=== PATIENT | female | born 1955 | race Caucasian/White ===

== ENCOUNTER 2017-03-12 12:09 | Day surgery (SDC) | payer OTHER ==
[2017-03-09 13:42] LABS: BASOPHILS 0.7 %; BASOPHILS ABSOLUTE 0.03 10/3/uL (0.0-0.16); EOSINOPHILS 1.8 %; EOSINOPHILS ABSOLUTE 0.08 10/3/uL (0.0-0.53); IMMATURE GRANULOCYTES 0.2 %; IMMATURE GRANULOCYTES ABSOLUTE 0.01 10/3/uL (0.0-0.11); LYMPHOCYTES 24.1 %; LYMPHOCYTES ABSOLUTE 1.09 10/3/uL (0.67-4.30); MEAN CORPUS HGB CONC 32.8 g/dL (32.0-36.0); MEAN CORPUSCULAR HEMOGLOB 27.1 pg (26.0-34.0); MEAN CORPUSCULAR VOLUME 82.6 fL (80-100); MEAN PLATELET VOLUME 11.1 fL (9.2-13.0); NEUTROPHILS 62.2 %; NEUTROPHILS ABSOLUTE 2.82 10/3/uL (2.02-8.40); RBC DISTRIBUTION WIDTH 14.1 % (12.0-16.0); RED CELL COUNT 5.06 10/6/uL (4.0-5.6); WHITE BLOOD CELLS 4.5 10/3/uL (4.5-10.5)
[2017-03-09 13:44] LABS: HEMATOCRIT 41.8 % (36.0-48.0); HEMOGLOBIN 13.7 g/dL (12.0-16.0); MANUAL DIFF NO %; PLATELET COUNT 143 10/3/uL (150-400)
[2017-03-09 13:57] LABS: A/G RATIO 1.6 (0.7-1.9); ALBUMIN 4.5 G/DL (3.5-5.0); CALCIUM, SERUM 9.2 MG/DL (8.5-10.4); CHLORIDE, SERUM 110 MMOL/L (96-112); CO2 (CARBON DIOXIDE) 29 MMOL/L (24-34); CREATININE 0.77 MG/DL (0.55-1.02); GFR AFRICAN AMERICAN 97 ML/MIN (>=60); GFR NON AFRICAN AMERICAN 84 ML/MIN (>=60); GLOBULIN 2.8 G/DL (2.5-4.1); GLUCOSE, SERUM 106 MG/DL (60-99); POTASSIUM, SERUM 4.5 MMOL/L (3.5-5.3); SGOT(AST) 15 U/L (5-40); SGPT(ALT) 18 U/L (5-65); SODIUM, SERUM 146 MMOL/L (135-148); TOTAL BILIRUBIN 0.4 MG/DL (0-1.2); TOTAL PROTEIN 7.3 G/DL (6.0-8.5)
[2017-03-09 13:58] LABS: ALKALINE PHOSPHATASE 77 U/L (45-117); BUN (BLOOD UREA NITROGEN) 18 MG/DL (6-23)
--- NOTE | ~2017-03-12 | OP ---
Record Of Operation [facility] [address] [place]. [address] NAME: BOSTON AGUIRRE : 59 STATUS : [facility]#: [id number] AGE: 62 ADM/REG DATE : 03/12/17 MR#: [id number] REPORT SERV DATE: 03/13/17 DICTATED BY: LIBRADO RAYMOND JR. DATE: 03/12/17 REPORT STATUS : Draft TRANSCRIBED BY: CAT DATE: 03/12/17 DATE OF PROCEDURE: 03/12/2017 SURGEON: Librado Raymond M.D. [employer]ER: Anjum Jim. PROCEDURE: Laparoscopic cholecystectomy. PREOPERATIVE DIAGNOSIS: Cholecystitis. POSTOPERATIVE DIAGNOSIS: Cholecystitis. ANESTHESIA: General. INDICATIONS: This patient has history of right upper quadrant pain. She had HIDA scan which showed normal visualization of gallbladder and thought to be consistent with biliary dyskinesia and chronic cholecystitis. She also had previous abdominal surgery for resection of GIST from which she has no evidence of recurrent disease. Laparoscopic cholecystectomy was indicated. FINDINGS: On laparoscopic examination of abdomen, there are adhesions from the previous surgery. These were taken down in the upper midline to facilitate exposure. The gallbladder was removed successfully. There is chronic inflammation. No other significant abnormalities were encountered. DESCRIPTION OF PROCEDURE: With adequate general anesthesia, the patient was placed in supine position. The abdomen was prepped and draped sterilely. 0.5% Marcaine was used for local infiltration of all trocar sites. The portion of previous midline incision was utilized in the umbilicus, that was opened down through the subcutaneous tissues. The fascia and perineum were opened. A balloon-tipped trocar was introduced. The abdomen was insufflated with CO2. The laparoscope was entered as above, then a placed in the epigastric with 5 mm scope placed through the right upper quadrant. Adhesions were taken down the midline utilizing the LigaSure device to control bleeding, then the tumor was placed through the midline trocar to visualize the gallbladder, it was grasped and retracted in a cephalad manner. The cystic duct and artery were identified, doubly clipped, and divided. The gallbladder was then removed from its bed with electrocautery, it was placed in an Endopouch and extracted with aspirated prior to dissection because it was full of mouth. It was submitted to Pathology. Bleeding within the bed was controlled with electrocautery. The wound was irrigated thoroughly. There was no evidence of any bleeding or bile leak. All trocars were removed under direct vision. The umbilical and epigastric sites were closed at the fascial layer with [id number] 0 PDS . All wounds were then closed with dermal Monocryl. Sterile dressings were applied. ESTIMATED BLOOD LOSS: 30 mL. Record Of Operation [facility] [address] [place]. [address] NAME: BOSTON AGUIRRE : 59 STATUS : [facility] PAT#: [id number] AGE: 62 ADM/REG DATE : 03/12/17 MR#: [id number] REPORT SERV DATE: 03/13/17 DICTATED BY: LIBRADO RAYMOND JR. DATE: 03/12/17 REPORT STATUS : Draft TRANSCRIBED BY: CAT DATE: 03/12/17 SJ/CAT Librado Raymond Jr., M.D. / [id number] CC: Rodrick Juarez Jr., M.D.
[~2017-03-12 12:09] MED LIST: ACET500CAP PO; BEN25 PO; CARDCD120 PO; CIP5 PO; CYMBALTA60 PO; FERROUS SULF325 M1 PO; FLAG500TAB PO; LEVAQUIN750 MG PO; LORT7 PO; MULTIPLE VIT PO; NOR50 PO; NORCO1 TA1 PO; PRILOSEC40 MG PO; V5 PO; Z-PAK PO; ZOCOR10 PO; ZOFRAN8 PO
== END 2017-03-12 19:30 | disposition home or self-care (01) ==
LOC: SDC 12:09
PROVIDERS: Specialist
PROC: 0FT44ZZ Resection of Gallbladder, Percutaneous Endoscopic Approach (ICD-10-PCS; principal; 2017-03-12 14:00)
DX: K80.10 Calculus of gallbladder with chronic cholecystitis without obstruction (principal); I10 Essential (primary) hypertension; J44.9 Chronic obstructive pulmonary disease, unspecified; K21.9 Gastro-esophageal reflux disease without esophagitis; E78.00 Pure hypercholesterolemia, unspecified; D64.9 Anemia, unspecified; Z98.51 Tubal ligation status; Z90.711 Acquired absence of uterus with remaining cervical stump; Z87.891 Personal history of nicotine dependence; Z98.890 Other specified postprocedural states
CPT/HCPCS: 36415; 71020; 80053; 82150; 83690; 85025; 88304; 93005; J0690; J1170; J2250; J2405; J2550; J3010

== ENCOUNTER 2017-03-18 10:39 | Inpatient (IN) | payer OTHER ==
--- NOTE | ~2017-03-18 | DS ---
Discharge Summary [facility] [address] [place]. [address] NAME: BOSTON AGUIRRE : 59 STATUS : DIS IN PAT#: [id number] AGE: 62 ADM/REG DATE : 03/18/17 MR#: [id number] REPORT SERV DATE: 04/03/17 DICTATED BY: LIBRADO RAYMOND JR. DATE: 04/02/17 REPORT STATUS : Draft TRANSCRIBED BY: CAT DATE: 04/02/17 Data Collection from hospitalization DISCHARGE DIAGNOSES: ( ) ( ) ( ) CONSULTATIONS: None. PROCEDURES PERFORMED: CT scan of the abdomen and pelvis with contrast on 03/18/2017. MEDICATIONS: Cardizem CD 120 mg daily, Benadryl 25 mg at bedtime as needed, Cymbalta 60 mg daily, Prilosec 20 mg twice a day, Zofran 4 mg every six hours as needed for nausea, and Zocor 10 mg at bedtime. CONDITION AT DISCHARGE: Stable. DISPOSITION: The patient was discharged home on a regular diet with activities as instructed. She would follow up with me two weeks following discharge. HOSPITAL COURSE: This is a 62-year-old female who has had a recent laparoscopic cholecystectomy for cholecystitis. She initially did well, but then developed nausea and emesis. This improved, but then worsened, and she has had significant bilious vomitus over the past 12 hours prior to admission. She was seen in the office where she had a dehydrated appearance and it was felt that observation and additional evaluation was indicated. Labs were unremarkable for hypokalemia, and she had a CT scan which demonstrated evidence of bowel obstruction with no evidence of any abscess, fluid collection, or free air. She was admitted to the hospital at this time for further evaluation and treatment. Upon admission, IV fluids were started. We would replenish electrolytes and recheck labs and x-rays in 24 hours. She would be held n.p.o. for now. She was felt to have possible bowel obstruction versus ileus versus gastroenteritis. The following day, she said she was feeling better. She had some emesis after taking a potassium still. She was passing some flatus. She remained n.p.o. On 03/20/2017, she had some increased pain during the night. Her abdomen was less distended. X-rays revealed slow resolution of the small bowel obstruction/ileus. IV fluids were continued. She began to have some liquid stool. Her incisions looked okay. On 03/22/2017, she was tolerating full liquids without nausea or vomiting. She was passing formed/semi-solid bowel movements. Her diet was advanced. The next day, she tolerated her regular diet. Her abdomen was soft. Discharge planning was performed on 03/24/2017. She has had an episode of emesis the previous evening. She was tolerating oral intake at this time. Discharge instructions were given. Due to her improved and stable condition, she was discharged home with the above-stated instructions. Information collected by: Katherine Echavarria I submit the above information as my discharge summary. Discharge Summary [place] [address] [facility] [place]. [address] NAME: BOSTON AGUIRRE : 59 STATUS : DIS IN PAT#: [id number] AGE: 62 ADM/REG DATE : 03/18/17 MR#: [id number] REPORT SERV DATE: 04/03/17 DICTATED BY: LIBRADO RAYMOND JR. DATE: 04/02/17 REPORT STATUS : Draft TRANSCRIBED BY: CAT DATE: 04/02/17 GUICHO/CAT Librado Raymond Jr., M.D. / [id number] CC: Rodrick Juarez Jr., M.D.
--- NOTE | ~2017-03-18 | HP ---
History And Physical [address] [place]. [address] NAME: BOSTON AGUIRRE : 59 STATUS : ADM Octavio PAT#: [id number] AGE: 62 ADM/REG DATE : 03/18/17 MR#: [id number] REPORT SERV DATE: 03/18/17 DICTATED BY: LIBRADO LUCAS JR. DATE: 03/18/17 REPORT STATUS : Draft TRANSCRIBED BY: MODSylwia DATE: 03/18/17 DATE OF ADMISSION: 03/18/2017 CHIEF COMPLAINT: Nausea, vomiting, and dehydration. HISTORY OF PRESENT ILLNESS: This is a 62-year-old female. She has had a recent laparoscopic cholecystectomy for cholecystitis. She initially did well, but then developed nausea and emesis. This improved but then has worsened and she has had significant bilious vomit over the past 12 hours. She was seen in the office where she had dehydrated appearance and it was felt that observation and additional evaluation was indicated. Laboratories are unremarkable for hypokalemia and she had a CT scan which demonstrated evidence of bowel obstruction with no evidence of any abscess, fluid collection, or free air. She is being held for IV fluids, initial aspiration. PAST MEDICAL HISTORY: Remarkable for history of a GIST tumor and also a squamous cell carcinoma, hypercholesterolemia, and hypertension. ALLERGIES: LISTED. HOME MEDICATIONS: Listed. SOCIAL HISTORY: Alcohol and tobacco, none. FAMILY HISTORY: Noncontributory. REVIEW OF SYSTEMS: GENERAL: No fever or chills. HEENT: Negative. PULMONARY: Negative. CARDIAC: Negative. : Low urine. MUSCULOSKELETAL: Negative. HEMATOLOGY: Negative. IMMUNOLOGIC: Negative. PSYCHIATRIC: Negative. PHYSICAL EXAMINATION: GENERAL: Exam shows a female who is in mild distress. HEENT: The head and neck exam shows pupils are equal, round, and reactive. No icteric changes. Mucous membranes are dry. NECK: The neck is supple. LUNGS: Clear bilaterally. CARDIOVASCULAR: Exam shows normal S1 and S2 without murmur. ABDOMEN: The abdomen is slightly distended. Hypoactive bowel sounds are present. Incisions are healing, it is soft, and there is mild tenderness. EXTREMITIES: Show no clubbing, cyanosis, or edema. NEUROLOGIC: She is alert and oriented. History And Physical [address] [place]. [address] NAME: BOSTON AGUIRRE : 59 STATUS : ADM Octavio PAT#: [id number] AGE: 62 ADM/REG DATE : 03/18/17 MR#: [id number] REPORT SERV DATE: 03/18/17 DICTATED BY: LIBRADO LUCAS JR. DATE: 03/18/17 REPORT STATUS : Draft TRANSCRIBED BY: CAT DATE: 03/18/17 LABORATORIES: Reviewed and also CT images. IMPRESSION: Postoperative nausea, vomiting, dehydration, possible bowel obstruction versus ileus versus gastroenteritis. PLAN: We will keep for observation, give IV fluids. Replenish electrolytes and recheck labs and x-rays in 24 hours. We will keep n.p.o. for now. SJ/CAT Librado Lucas Jr., M.D. / [id number] CC: Librado Lucas Jr., M.D.
[2017-03-18 11:22] LABS: BASOPHILS 0.3 %; BASOPHILS ABSOLUTE 0.02 10/3/uL (0.0-0.16); EOSINOPHILS 1.7 %; HEMATOCRIT 39.4 % (36.0-48.0); HEMOGLOBIN 13.4 g/dL (12.0-16.0); IMMATURE GRANULOCYTES 0.2 %; IMMATURE GRANULOCYTES ABSOLUTE 0.01 10/3/uL (0.0-0.11); LYMPHOCYTES 14.5 %; LYMPHOCYTES ABSOLUTE 0.84 10/3/uL (0.67-4.30); MEAN CORPUSCULAR HEMOGLOB 27.3 pg (26.0-34.0); MEAN CORPUSCULAR VOLUME 80.4 fL (80-100); MEAN PLATELET VOLUME 10.4 fL (9.2-13.0); MONOCYTES 15.7 %; MONOCYTES ABSOLUTE 0.91 10/3/uL (0.21-1.20); NEUTROPHILS 67.6 %; NEUTROPHILS ABSOLUTE 3.93 10/3/uL (2.02-8.40); PLATELET COUNT 159 10/3/uL (150-400); RBC DISTRIBUTION WIDTH 13.9 % (12.0-16.0); WHITE BLOOD CELLS 5.8 10/3/uL (4.5-10.5)
[2017-03-18 11:23] LABS: MANUAL DIFF NO %
[2017-03-18 11:43] LABS: A/G RATIO 1.2 (0.7-1.9); ALBUMIN 3.8 G/DL (3.5-5.0); ALKALINE PHOSPHATASE 68 U/L (45-117); BUN (BLOOD UREA NITROGEN) 11 MG/DL (6-23); CALCIUM, SERUM 9.2 MG/DL (8.5-10.4); CHLORIDE, SERUM 102 MMOL/L (96-112); CO2 (CARBON DIOXIDE) 29 MMOL/L (24-34); CREATININE 0.83 MG/DL (0.55-1.02); GFR AFRICAN AMERICAN 89 ML/MIN (>=60); GFR NON AFRICAN AMERICAN 77 ML/MIN (>=60); GLOBULIN 3.3 G/DL (2.5-4.1); GLUCOSE, SERUM 104 MG/DL (60-99); PHOSPHORUS, SERUM 1.9 MG/DL (2.5-4.5); SGOT(AST) 12 U/L (5-40); SGPT(ALT) 26 U/L (5-65); SODIUM, SERUM 140 MMOL/L (135-148); TOTAL BILIRUBIN 0.7 MG/DL (0-1.2); TOTAL PROTEIN 7.1 G/DL (6.0-8.5)
[2017-03-18 15:36] LABS: ASCORBIC ACID (UR NOT ORDER) NEG (NEG); BILIRUBIN, URINE NEGATIVE (NEG); KETONE, URINE NEGATIVE (NEG); LEUKOCYTE ESTERASE(NOT OR TRACE (NEG); WBC (NOT ORDERED) (RFLEX) 2 (0-5)
[2017-03-19 03:36] LABS: BASOPHILS 0.2 %; BASOPHILS ABSOLUTE 0.01 10/3/uL (0.0-0.16); EOSINOPHILS 2.8 %; EOSINOPHILS ABSOLUTE 0.14 10/3/uL (0.0-0.53); HEMATOCRIT 38.4 % (36.0-48.0); HEMOGLOBIN 12.9 g/dL (12.0-16.0); IMMATURE GRANULOCYTES 0.2 %; IMMATURE GRANULOCYTES ABSOLUTE 0.01 10/3/uL (0.0-0.11); LYMPHOCYTES 17.1 %; LYMPHOCYTES ABSOLUTE 0.86 10/3/uL (0.67-4.30); MANUAL DIFF NO %; MEAN CORPUS HGB CONC 33.6 g/dL (32.0-36.0); MEAN CORPUSCULAR HEMOGLOB 27.6 pg (26.0-34.0); MEAN CORPUSCULAR VOLUME 82.1 fL (80-100); MEAN PLATELET VOLUME 10.6 fL (9.2-13.0); MONOCYTES 14.3 %; MONOCYTES ABSOLUTE 0.72 10/3/uL (0.21-1.20); NEUTROPHILS 65.4 %; NEUTROPHILS ABSOLUTE 3.28 10/3/uL (2.02-8.40); PLATELET COUNT 138 10/3/uL (150-400); RED CELL COUNT 4.68 10/6/uL (4.0-5.6)
[2017-03-19 03:53] LABS: A/G RATIO 1.3 (0.7-1.9); ALBUMIN 3.3 G/DL (3.5-5.0); ALKALINE PHOSPHATASE 59 U/L (45-117); CALCIUM, SERUM 8.4 MG/DL (8.5-10.4); CHLORIDE, SERUM 109 MMOL/L (96-112); CO2 (CARBON DIOXIDE) 27 MMOL/L (24-34); GFR AFRICAN AMERICAN 93 ML/MIN (>=60); GFR NON AFRICAN AMERICAN 80 ML/MIN (>=60); SGOT(AST) 9 U/L (5-40); SGPT(ALT) 22 U/L (5-65); SODIUM, SERUM 144 MMOL/L (135-148); TOTAL BILIRUBIN 0.4 MG/DL (0-1.2); TOTAL PROTEIN 5.9 G/DL (6.0-8.5)
[2017-03-19 04:03] LABS: BUN (BLOOD UREA NITROGEN) 5 MG/DL (6-23); GLOBULIN 2.6 G/DL (2.5-4.1); GLUCOSE, SERUM 159 MG/DL (60-99); POTASSIUM, SERUM 3.8 MMOL/L (3.5-5.3)
[2017-03-20 05:06] LABS: BASOPHILS 0.2 %; BASOPHILS ABSOLUTE 0.01 10/3/uL (0.0-0.16); EOSINOPHILS 1.4 %; EOSINOPHILS ABSOLUTE 0.07 10/3/uL (0.0-0.53); HEMATOCRIT 39.4 % (36.0-48.0); HEMOGLOBIN 13.4 g/dL (12.0-16.0); IMMATURE GRANULOCYTES 0.2 %; IMMATURE GRANULOCYTES ABSOLUTE 0.01 10/3/uL (0.0-0.11); LYMPHOCYTES 8.6 %; LYMPHOCYTES ABSOLUTE 0.43 10/3/uL (0.67-4.30); MEAN CORPUSCULAR HEMOGLOB 27.6 pg (26.0-34.0); MEAN CORPUSCULAR VOLUME 81.1 fL (80-100); MEAN PLATELET VOLUME 10.5 fL (9.2-13.0); NEUTROPHILS 77.6 %; NEUTROPHILS ABSOLUTE 3.89 10/3/uL (2.02-8.40); PLATELET COUNT 151 10/3/uL (150-400); RBC DISTRIBUTION WIDTH 13.5 % (12.0-16.0); RED CELL COUNT 4.86 10/6/uL (4.0-5.6)
[2017-03-20 05:19] LABS: MANUAL DIFF NO %
[2017-03-20 05:21] LABS: ALBUMIN 3.1 G/DL (3.5-5.0); ALKALINE PHOSPHATASE 67 U/L (45-117); BUN (BLOOD UREA NITROGEN) 3 MG/DL (6-23); CALCIUM, SERUM 8.6 MG/DL (8.5-10.4); CHLORIDE, SERUM 106 MMOL/L (96-112); CO2 (CARBON DIOXIDE) 25 MMOL/L (24-34); GFR AFRICAN AMERICAN 109 ML/MIN (>=60); GFR NON AFRICAN AMERICAN 94 ML/MIN (>=60); GLOBULIN 3.1 G/DL (2.5-4.1); GLUCOSE, SERUM 144 MG/DL (60-99); POTASSIUM, SERUM 3.9 MMOL/L (3.5-5.3); SGOT(AST) 11 U/L (5-40); SGPT(ALT) 17 U/L (5-65); SODIUM, SERUM 139 MMOL/L (135-148); TOTAL BILIRUBIN 0.5 MG/DL (0-1.2); TOTAL PROTEIN 6.2 G/DL (6.0-8.5)
[2017-03-21 04:38] LABS: BASOPHILS 0.3 %; BASOPHILS ABSOLUTE 0.01 10/3/uL (0.0-0.16); EOSINOPHILS ABSOLUTE 0.08 10/3/uL (0.0-0.53); HEMATOCRIT 39.6 % (36.0-48.0); HEMOGLOBIN 13.3 g/dL (12.0-16.0); LYMPHOCYTES 19.7 %; LYMPHOCYTES ABSOLUTE 0.77 10/3/uL (0.67-4.30); MEAN CORPUS HGB CONC 33.6 g/dL (32.0-36.0); MEAN CORPUSCULAR HEMOGLOB 27.4 pg (26.0-34.0); MEAN CORPUSCULAR VOLUME 81.6 fL (80-100); MEAN PLATELET VOLUME 9.9 fL (9.2-13.0); MONOCYTES 18.9 %; MONOCYTES ABSOLUTE 0.74 10/3/uL (0.21-1.20); NEUTROPHILS 59.1 %; NEUTROPHILS ABSOLUTE 2.31 10/3/uL (2.02-8.40); PLATELET COUNT 168 10/3/uL (150-400); RBC DISTRIBUTION WIDTH 13.6 % (12.0-16.0); RED CELL COUNT 4.85 10/6/uL (4.0-5.6); WHITE BLOOD CELLS 3.9 10/3/uL (4.5-10.5)
[2017-03-21 04:41] LABS: MANUAL DIFF NO %
[2017-03-21 04:52] LABS: BUN (BLOOD UREA NITROGEN) 3 MG/DL (6-23); CALCIUM, SERUM 8.9 MG/DL (8.5-10.4); CHLORIDE, SERUM 105 MMOL/L (96-112); CO2 (CARBON DIOXIDE) 31 MMOL/L (24-34); GFR AFRICAN AMERICAN 93 ML/MIN (>=60); GFR NON AFRICAN AMERICAN 80 ML/MIN (>=60); GLUCOSE, SERUM 126 MG/DL (60-99); POTASSIUM, SERUM 4.3 MMOL/L (3.5-5.3); SODIUM, SERUM 140 MMOL/L (135-148)
[2017-03-23] MEDS ORDERED: ZOFRAN4 PO (17:51)
== END 2017-03-24 11:41 | disposition home or self-care (01) | DRG 395 ==
LOC: CDU1 10:39 → 4SO 03-21 08:47
PROVIDERS: Specialist
DX: K91.3 Postprocedural intestinal obstruction (principal); I10 Essential (primary) hypertension; E86.0 Dehydration; Y83.6 Removal of other organ (partial) (total) as the cause of abnormal reaction of the patient, or of later complication, without mention of misadventure at the time of the procedure; Z90.49 Acquired absence of other specified parts of digestive tract; E78.00 Pure hypercholesterolemia, unspecified; Z85.09 Personal history of malignant neoplasm of other digestive organs; Z98.890 Other specified postprocedural states; Y92.009 Unspecified place in unspecified non-institutional (private) residence as the place of occurrence of the external cause
CPT/HCPCS: 74020; 74177; 80048; 80053; 81001; 82150; 82962; 83690; 83735; 84100; 85025; A9270-GY; C9113; J2405; Q9967

== ENCOUNTER 2017-04-01 11:14 | Inpatient (IN) | payer OTHER ==
--- NOTE | ~2017-04-01 | DS ---
Discharge Summary [facility] [address] [place]. [address] NAME: BOSTON AGUIRRE : 59 STATUS : DIS IN PAT#: [id number] AGE: 62 ADM/REG DATE : 04/01/17 MR#: [id number] REPORT SERV DATE: 04/14/17 DICTATED BY: LIBRADO RAYMOND JR. DATE: 04/13/17 REPORT STATUS : Draft TRANSCRIBED BY: CAT DATE: 04/13/17 Data Collection from hospitalization DISCHARGE DIAGNOSIS(ES): 1. Small bowel obstruction. 2. Hypercholesterolemia. 3. Hypertension. 4. Gastroesophageal reflux disease. CONSULTATIONS: None. PROCEDURES PERFORMED: 1. CT of the abdomen and pelvis with contrast, 04/01/2017. 2. Exploratory laparotomy, lysis of adhesions, 04/02/2017. PATHOLOGY: Omentum with embedded mesh excision, fat necrosis. MEDICATIONS: Cartia XT 120 mg at bedtime, Cymbalta 60 mg daily, Prilosec 40 mg twice daily, Zocor 10 mg at bedtime, Banophen 25 mg at bedtime as needed, Zofran 4 mg every 6 hours as needed for nausea, and Phenergan 25 mg every 6 hours as needed for nausea. CONDITION AT DISCHARGE: Upon discharge, she did appear to be doing well and had no complaints. DISPOSITION: She was discharged home to continue a GI soft low fat, low residue diet with activity as discussed. She was to follow up with me in the office on 04/17/2017. HOSPITAL COURSE: This 62-year-old female presented with recurrent abdominal pain, cramping, nausea, and emesis. She had recent admission for small bowel obstruction which appeared resolved. She did have a history of cholecystectomy and history of GIST resection, hernia repair, and also pelvic radiation. She was admitted for additional evaluation and treatment. Upon admission to the hospital, she had been placed on electrolyte protocol, Protonix 40 mg IV daily, morphine 1 to 2 mg IV every 4 hours as needed, Zofran 4 mg IV every 4 to 6 hours as needed. She did undergo the above CT of the abdomen and pelvis with contrast on the day of admission. She had been placed on an n.p.o. diet, and IV fluids were also begun. Secondary to the findings of the CT scan, surgery had been discussed with the patient, and she was agreeable to proceed. Following the day of admission, she was taken to the operating room where she did undergo the above exploratory laparotomy. She had tolerated this well and was transferred to the recovery room. On postop day #1, she was noted to be feeling much better. She had been placed on a clear liquid diet. She was continued on IV fluids. She had no nausea or vomiting noted. On postop day #2, she did continue to do well and had no nausea or vomiting. Her abdomen was slightly distended. On postop day #2, she tolerated a full liquid diet and was noted to be feeling much better. Her WBCs were at 2.9. Her diet was being slowly advanced. On 04/06/2017, she had tolerated diet advancement without difficulty. Due to her stable condition, she was then discharged with the above instructions. Information collected by: Jeronimo Tabares Discharge Summary [address] [address] NAME: BOSTON AGUIRRE : 59 STATUS : DIS IN PAT#: [id number] AGE: 62 ADM/REG DATE : 04/01/17 MR#: [id number] REPORT SERV DATE: 04/14/17 DICTATED BY: LIBRADO RAYMOND JR. DATE: 04/13/17 REPORT STATUS : Draft TRANSCRIBED BY: CAT DATE: 04/13/17 I submit the above information as my discharge summary. MELISSA/CAT Librado Raymond Jr., M.D. / [id number] CC: Rodrick Juarez Jr., M.D.
--- NOTE | ~2017-04-01 | HP ---
History And Physical [address] [place]. [address] NAME: BOSTON AGUIRRE : 59 STATUS : ADM Octavio PAT#: [id number] AGE: 62 ADM/REG DATE : 04/01/17 MR#: [id number] REPORT SERV DATE: 04/02/17 DICTATED BY: LIBRADO LUCAS JR. DATE: 04/02/17 REPORT STATUS : Draft TRANSCRIBED BY: CAT DATE: 04/02/17 DATE OF ADMISSION: 04/01/2017 CHIEF COMPLAINT: Abdominal pain. HISTORY OF PRESENT ILLNESS: This is a 62-year-old female. She presents with recurrent abdominal pain, cramping, nausea, and emesis. She had recent admission for small bowel obstruction, which appeared resolved. She did have a history of cholecystectomy and history of GIST resection, hernia repair, and also pelvic radiation. She is admitted for additional evaluation and treatment. PAST MEDICAL HISTORY: Remarkable for hypercholesterolemia and hypertension. ALLERGIES: NONE. SOCIAL HISTORY: Tobacco and alcohol, none. FAMILY HISTORY: Noncontributory. REVIEW OF SYSTEMS: GENERAL: No fever or chills. Positive weakness, fatigue. HEENT: Negative. PULMONARY: Negative. CARDIAC: Negative. ABDOMEN: As above. : No symptoms. MUSCULOSKELETAL: Negative. HEME: Negative. IMMUNE: Negative. PSYCH: Negative. PHYSICAL EXAMINATION: GENERAL: Shows a female, who is in moderate distress. VITAL SIGNS: Heart rate 85, blood pressure 141/79, temperature 97.9. HEENT: Pupils are equal, round, and reactive. No icteric changes. Mucous membranes are slightly dry. NECK: Supple. There is no mass or thyromegaly. LUNGS: Clear bilaterally. CARDIOVASCULAR: Normal S1 and S2 without murmur. ABDOMEN: Somewhat distended, but soft. There is some mild tenderness in the right side. There are no peritoneal signs. EXTREMITIES: No clubbing, cyanosis, or edema. NEUROLOGIC: She is alert and oriented. No focal findings. Appropriate affect. IMPRESSION: Small bowel obstruction. History And Physical [address] [place]. [address] NAME: BOSTON AGUIRRE : 59 STATUS : ADM Octavio PAT#: [id number] AGE: 62 ADM/REG DATE : 04/01/17 MR#: [id number] REPORT SERV DATE: 04/02/17 DICTATED BY: LIBRADO LUCAS JR. DATE: 04/02/17 REPORT STATUS : Draft TRANSCRIBED BY: CAT DATE: 04/02/17 PLAN: We will proceed with admission. Give IV fluids. Keep n.p.o. status. Check CT imaging and likely proceed with surgery in the next 24 hours. SJ/CAT Librado Lucas Jr., M.D. / [id number] CC: Rodrick Juarez Jr., M.D.
--- NOTE | ~2017-04-01 | OP ---
Record Of Operation [facility] [address] [place]. [address] NAME: BOSTON AGUIRRE : 59 STATUS : ADM Octavio PAT#: [id number] AGE: 62 ADM/REG DATE : 04/01/17 MR#: [id number] REPORT SERV DATE: 04/02/17 DICTATED BY: LIBRADO RAYMOND JR. DATE: 04/02/17 REPORT STATUS : Draft TRANSCRIBED BY: MODL DATE: 04/02/17 DATE OF PROCEDURE: 04/02/2017 SURGEON: Librado Raymond M.D. [employer] ADMINISTRATOR: Hansa Miguel. PROCEDURE: Exploratory laparotomy, lysis of adhesions. PREOPERATIVE DIAGNOSIS: Small bowel obstruction. POSTOPERATIVE DIAGNOSIS: Small bowel obstruction. ANESTHESIA: General. INDICATIONS: The patient has had complex surgical history, history of GIST, history of pelvic radiation, and most recently, history of cholecystectomy. She has developed signs and symptoms of small-bowel obstruction which initially appeared to resolve with medical treatment but then reoccurred and therefore operation is indicated. FINDINGS: On laparoscopic examination of the abdomen, there were some adhesions in the midline. She has had previous hernia repair as well with mesh. This was the only omentum. There was no small bowel which was adherent. Once the abdomen was entered, it was apparent a band in the terminal ileal region which had constricted the bowel and was the site of the obstruction. Once this was released, some previously dark color bowel pinked up and everything appeared to be viable. There was a minimal amount of serous fluid. No significant findings were encountered. Satisfactory repair of the midline fascia was undertaken as the hernia mesh had been incorporated on either side. DESCRIPTION OF PROCEDURE: With adequate general anesthesia, the patient was placed in supine position. The abdomen was prepped and draped sterilely. The previous midline incision was utilized. It was reopened and dissection was carried down sharply through the subcutaneous tissues. The fascia was divided. The underlying adhesions were dissected sharply as noted. The above-noted findings were encountered. The omental band was divided the adhesive band was divided with electrocautery. Bowel was thoroughly examined and found to be viable. No other significant findings were encountered. The wound was subcutaneous flaps were raised to mobilize the fascia. This was then able to be closed with a running 0 PDS suture. Subcutaneous tissues were closed with 3-0 Vicryl and skin with dermal Monocryl. An overlay negative pressure dressing was placed. The patient left the operating room in satisfactory condition. ESTIMATED BLOOD LOSS: Was 10 mL. Samy/ROHINIL Record Of Operation [address] [place]. [address] NAME: BOSTON AGUIRRE : 59 STATUS : ADM Octavio PAT#: [id number] AGE: 62 ADM/REG DATE : 04/01/17 MR#: [id number] REPORT SERV DATE: 04/02/17 DICTATED BY: LIBRADO RAYMOND JR. DATE: 04/02/17 REPORT STATUS : Draft TRANSCRIBED BY: CAT DATE: 04/02/17 Librado Raymond Jr., M.D. / [id number] CC: Rodrick Juarez Jr., M.D.
[~2017-04-01 11:14] MED LIST changes: +ZOFRAN4 PO
[2017-04-01 12:32] LABS: BASOPHILS 0.6 %; BASOPHILS ABSOLUTE 0.03 10/3/uL (0.0-0.16); EOSINOPHILS 2.9 %; EOSINOPHILS ABSOLUTE 0.15 10/3/uL (0.0-0.53); HEMATOCRIT 37.6 % (36.0-48.0); HEMOGLOBIN 12.5 g/dL (12.0-16.0); IMMATURE GRANULOCYTES 0.2 %; IMMATURE GRANULOCYTES ABSOLUTE 0.01 10/3/uL (0.0-0.11); LYMPHOCYTES 23.2 %; MANUAL DIFF NO %; MEAN CORPUS HGB CONC 33.2 g/dL (32.0-36.0); MEAN CORPUSCULAR HEMOGLOB 27.3 pg (26.0-34.0); MEAN CORPUSCULAR VOLUME 82.1 fL (80-100); MEAN PLATELET VOLUME 9.9 fL (9.2-13.0); MONOCYTES 11.8 %; MONOCYTES ABSOLUTE 0.61 10/3/uL (0.21-1.20); NEUTROPHILS 61.3 %; NEUTROPHILS ABSOLUTE 3.17 10/3/uL (2.02-8.40); PLATELET COUNT 174 10/3/uL (150-400); RBC DISTRIBUTION WIDTH 14.1 % (12.0-16.0); RED CELL COUNT 4.58 10/6/uL (4.0-5.6); WHITE BLOOD CELLS 5.2 10/3/uL (4.5-10.5)
[2017-04-01 12:49] LABS: A/G RATIO 1.3 (0.7-1.9); ALBUMIN 3.9 G/DL (3.5-5.0); ALKALINE PHOSPHATASE 76 U/L (45-117); BUN (BLOOD UREA NITROGEN) 10 MG/DL (6-23); CALCIUM, SERUM 9.1 MG/DL (8.5-10.4); CHLORIDE, SERUM 109 MMOL/L (96-112); CO2 (CARBON DIOXIDE) 29 MMOL/L (24-34); CREATININE 0.79 MG/DL (0.55-1.02); GFR AFRICAN AMERICAN 94 ML/MIN (>=60); GFR NON AFRICAN AMERICAN 81 ML/MIN (>=60); GLUCOSE, SERUM 95 MG/DL (60-99); POTASSIUM, SERUM 3.8 MMOL/L (3.5-5.3); SGOT(AST) 25 U/L (5-40); SGPT(ALT) 48 U/L (5-65); SODIUM, SERUM 145 MMOL/L (135-148); TOTAL BILIRUBIN 0.5 MG/DL (0-1.2); TOTAL PROTEIN 6.9 G/DL (6.0-8.5)
[2017-04-01] MEDS ORDERED: PRILOSEC40 MG PO (13:08)
[2017-04-01] MEDS ORDERED: CYMBALTA60 PO (13:08)
[2017-04-01] MEDS ORDERED: CARTIA XT120 MG/24 PO (13:08)
[2017-04-01] MEDS ORDERED: BANOPHEN25 MG PO (13:08)
[2017-04-01] MEDS ORDERED: ZOCOR10 PO (13:09)
[2017-04-01] MEDS ORDERED: ZOFRAN4 PO (13:09)
[2017-04-01] MEDS ORDERED: PR25 PO (13:09)
[2017-04-01 16:04] LABS: ASCORBIC ACID (UR NOT ORDER) NEG (NEG); BILIRUBIN, URINE NEGATIVE (NEG); KETONE, URINE TRACE MG/DL (NEG); LEUKOCYTE ESTERASE(NOT OR MOD (NEG); WBC (NOT ORDERED) (RFLEX) 2 (0-5)
[2017-04-02 06:21] LABS: BASOPHILS 0.4 %; BASOPHILS ABSOLUTE 0.02 10/3/uL (0.0-0.16); EOSINOPHILS 2.1 %; EOSINOPHILS ABSOLUTE 0.11 10/3/uL (0.0-0.53); HEMATOCRIT 37.7 % (36.0-48.0); HEMOGLOBIN 12.6 g/dL (12.0-16.0); IMMATURE GRANULOCYTES 0.2 %; IMMATURE GRANULOCYTES ABSOLUTE 0.01 10/3/uL (0.0-0.11); LYMPHOCYTES 14.8 %; LYMPHOCYTES ABSOLUTE 0.77 10/3/uL (0.67-4.30); MEAN CORPUS HGB CONC 33.4 g/dL (32.0-36.0); MEAN CORPUSCULAR HEMOGLOB 27.3 pg (26.0-34.0); MEAN CORPUSCULAR VOLUME 81.8 fL (80-100); MEAN PLATELET VOLUME 10.1 fL (9.2-13.0); MONOCYTES 8.6 %; MONOCYTES ABSOLUTE 0.45 10/3/uL (0.21-1.20); NEUTROPHILS 73.9 %; NEUTROPHILS ABSOLUTE 3.85 10/3/uL (2.02-8.40); PLATELET COUNT 170 10/3/uL (150-400); RBC DISTRIBUTION WIDTH 13.7 % (12.0-16.0); RED CELL COUNT 4.61 10/6/uL (4.0-5.6); WHITE BLOOD CELLS 5.2 10/3/uL (4.5-10.5)
[2017-04-02 06:23] LABS: MANUAL DIFF NO %
[2017-04-02 06:29] LABS: CALCIUM, SERUM 8.3 MG/DL (8.5-10.4); CHLORIDE, SERUM 107 MMOL/L (96-112); CO2 (CARBON DIOXIDE) 26 MMOL/L (24-34); CREATININE 0.62 MG/DL (0.55-1.02); GFR AFRICAN AMERICAN 114 ML/MIN (>=60); GFR NON AFRICAN AMERICAN 98 ML/MIN (>=60); GLUCOSE, SERUM 103 MG/DL (60-99); POTASSIUM, SERUM 3.7 MMOL/L (3.5-5.3); SODIUM, SERUM 142 MMOL/L (135-148)
[2017-04-02 06:30] LABS: BUN (BLOOD UREA NITROGEN) 6 MG/DL (6-23); PHOSPHORUS, SERUM 3.5 MG/DL (2.5-4.5)
[2017-04-02 16:21] LABS: BASOPHILS 0.1 %; BASOPHILS ABSOLUTE 0.01 10/3/uL (0.0-0.16); EOSINOPHILS 1.1 %; HEMATOCRIT 37.8 % (36.0-48.0); HEMOGLOBIN 12.3 g/dL (12.0-16.0); IMMATURE GRANULOCYTES 0.1 %; IMMATURE GRANULOCYTES ABSOLUTE 0.01 10/3/uL (0.0-0.11); LYMPHOCYTES 6.3 %; LYMPHOCYTES ABSOLUTE 0.59 10/3/uL (0.67-4.30); MEAN CORPUS HGB CONC 32.5 g/dL (32.0-36.0); MEAN CORPUSCULAR HEMOGLOB 26.8 pg (26.0-34.0); MEAN CORPUSCULAR VOLUME 82.4 fL (80-100); MEAN PLATELET VOLUME 10.3 fL (9.2-13.0); MONOCYTES 2.8 %; MONOCYTES ABSOLUTE 0.26 10/3/uL (0.21-1.20); NEUTROPHILS 89.6 %; PLATELET COUNT 156 10/3/uL (150-400); RBC DISTRIBUTION WIDTH 13.6 % (12.0-16.0); RED CELL COUNT 4.59 10/6/uL (4.0-5.6)
[2017-04-02 16:23] LABS: WHITE BLOOD CELLS 9.4 10/3/uL (4.5-10.5)
[2017-04-02 16:24] LABS: MANUAL DIFF NO %
[2017-04-02 16:26] LABS: BUN (BLOOD UREA NITROGEN) 3 MG/DL (6-23); CALCIUM, SERUM 8.5 MG/DL (8.5-10.4); CHLORIDE, SERUM 106 MMOL/L (96-112); CO2 (CARBON DIOXIDE) 26 MMOL/L (24-34); CREATININE 0.62 MG/DL (0.55-1.02); GFR AFRICAN AMERICAN 114 ML/MIN (>=60); GFR NON AFRICAN AMERICAN 98 ML/MIN (>=60); GLUCOSE, SERUM 121 MG/DL (60-99); POTASSIUM, SERUM 3.7 MMOL/L (3.5-5.3); SODIUM, SERUM 140 MMOL/L (135-148)
[2017-04-03 07:08] LABS: BASOPHILS 0.2 %; BASOPHILS ABSOLUTE 0.02 10/3/uL (0.0-0.16); EOSINOPHILS 0.1 %; EOSINOPHILS ABSOLUTE 0.01 10/3/uL (0.0-0.53); HEMOGLOBIN 10.5 g/dL (12.0-16.0); IMMATURE GRANULOCYTES 0.2 %; IMMATURE GRANULOCYTES ABSOLUTE 0.02 10/3/uL (0.0-0.11); LYMPHOCYTES ABSOLUTE 0.34 10/3/uL (0.67-4.30); MEAN CORPUSCULAR HEMOGLOB 27.3 pg (26.0-34.0); MEAN CORPUSCULAR VOLUME 80.5 fL (80-100); MEAN PLATELET VOLUME 10.2 fL (9.2-13.0); MONOCYTES 10.6 %; NEUTROPHILS 84.9 %; NEUTROPHILS ABSOLUTE 7.17 10/3/uL (2.02-8.40); PLATELET COUNT 159 10/3/uL (150-400); RBC DISTRIBUTION WIDTH 13.7 % (12.0-16.0); RED CELL COUNT 3.84 10/6/uL (4.0-5.6); WHITE BLOOD CELLS 8.5 10/3/uL (4.5-10.5)
[2017-04-03 07:10] LABS: HEMATOCRIT 30.9 % (36.0-48.0); MANUAL DIFF NO %
[2017-04-03 07:13] LABS: BUN (BLOOD UREA NITROGEN) 4 MG/DL (6-23); CALCIUM, SERUM 8.8 MG/DL (8.5-10.4); CHLORIDE, SERUM 102 MMOL/L (96-112); CO2 (CARBON DIOXIDE) 28 MMOL/L (24-34); CREATININE 0.69 MG/DL (0.55-1.02); GFR AFRICAN AMERICAN 110 ML/MIN (>=60); GFR NON AFRICAN AMERICAN 95 ML/MIN (>=60); GLUCOSE, SERUM 114 MG/DL (60-99); POTASSIUM, SERUM 4.2 MMOL/L (3.5-5.3); SODIUM, SERUM 137 MMOL/L (135-148)
[2017-04-04 07:00] LABS: BASOPHILS 0.6 %; BASOPHILS ABSOLUTE 0.02 10/3/uL (0.0-0.16); EOSINOPHILS 11.8 %; EOSINOPHILS ABSOLUTE 0.38 10/3/uL (0.0-0.53); LYMPHOCYTES 19.3 %; LYMPHOCYTES ABSOLUTE 0.62 10/3/uL (0.67-4.30); MEAN CORPUS HGB CONC 32.8 g/dL (32.0-36.0); MEAN CORPUSCULAR VOLUME 82.3 fL (80-100); MEAN PLATELET VOLUME 9.9 fL (9.2-13.0); MONOCYTES 13.7 %; MONOCYTES ABSOLUTE 0.44 10/3/uL (0.21-1.20); NEUTROPHILS 54.6 %; NEUTROPHILS ABSOLUTE 1.75 10/3/uL (2.02-8.40); PLATELET COUNT 128 10/3/uL (150-400); RBC DISTRIBUTION WIDTH 13.9 % (12.0-16.0)
[2017-04-04 07:08] LABS: BUN (BLOOD UREA NITROGEN) 6 MG/DL (6-23); CALCIUM, SERUM 8.6 MG/DL (8.5-10.4); CO2 (CARBON DIOXIDE) 28 MMOL/L (24-34); GLUCOSE, SERUM 102 MG/DL (60-99)
[2017-04-04 07:11] LABS: HEMATOCRIT 24.7 % (36.0-48.0); HEMOGLOBIN 8.1 g/dL (12.0-16.0); MANUAL DIFF NO %; WHITE BLOOD CELLS 3.2 10/3/uL (4.5-10.5)
[2017-04-04 07:19] LABS: CHLORIDE, SERUM 107 MMOL/L (96-112); CREATININE 0.57 MG/DL (0.55-1.02); GFR AFRICAN AMERICAN 117 ML/MIN (>=60); GFR NON AFRICAN AMERICAN 101 ML/MIN (>=60); POTASSIUM, SERUM 3.4 MMOL/L (3.5-5.3); SODIUM, SERUM 142 MMOL/L (135-148)
[2017-04-05 07:07] LABS: BASOPHILS 0 %; EOSINOPHILS 12.4 %; EOSINOPHILS ABSOLUTE 0.36 10/3/uL (0.0-0.53); HEMATOCRIT 25.6 % (36.0-48.0); HEMOGLOBIN 8.5 g/dL (12.0-16.0); LYMPHOCYTES 19.9 %; LYMPHOCYTES ABSOLUTE 0.58 10/3/uL (0.67-4.30); MEAN CORPUS HGB CONC 33.2 g/dL (32.0-36.0); MEAN CORPUSCULAR HEMOGLOB 27.4 pg (26.0-34.0); MEAN CORPUSCULAR VOLUME 82.6 fL (80-100); MEAN PLATELET VOLUME 10.1 fL (9.2-13.0); MONOCYTES 16.5 %; MONOCYTES ABSOLUTE 0.48 10/3/uL (0.21-1.20); NEUTROPHILS 51.2 %; NEUTROPHILS ABSOLUTE 1.49 10/3/uL (2.02-8.40); PLATELET COUNT 141 10/3/uL (150-400); RBC DISTRIBUTION WIDTH 14.2 % (12.0-16.0); WHITE BLOOD CELLS 2.9 10/3/uL (4.5-10.5)
[2017-04-05 07:17] LABS: MANUAL DIFF NO %
[2017-04-05 07:21] LABS: CALCIUM, SERUM 8.5 MG/DL (8.5-10.4); CHLORIDE, SERUM 109 MMOL/L (96-112); CO2 (CARBON DIOXIDE) 30 MMOL/L (24-34); CREATININE 0.48 MG/DL (0.55-1.02); GFR AFRICAN AMERICAN 124 ML/MIN (>=60); GFR NON AFRICAN AMERICAN 107 ML/MIN (>=60); GLUCOSE, SERUM 107 MG/DL (60-99); POTASSIUM, SERUM 3.9 MMOL/L (3.5-5.3); SODIUM, SERUM 141 MMOL/L (135-148)
[2017-04-05 07:22] LABS: BUN (BLOOD UREA NITROGEN) 2 MG/DL (6-23)
[2017-04-06 07:25] LABS: BASOPHILS 0.3 %; BASOPHILS ABSOLUTE 0.01 10/3/uL (0.0-0.16); EOSINOPHILS 13.2 %; EOSINOPHILS ABSOLUTE 0.42 10/3/uL (0.0-0.53); HEMOGLOBIN 9.5 g/dL (12.0-16.0); LYMPHOCYTES 21.3 %; LYMPHOCYTES ABSOLUTE 0.68 10/3/uL (0.67-4.30); MEAN CORPUS HGB CONC 32.9 g/dL (32.0-36.0); MEAN CORPUSCULAR HEMOGLOB 27.6 pg (26.0-34.0); MEAN PLATELET VOLUME 9.7 fL (9.2-13.0); MONOCYTES 13.5 %; MONOCYTES ABSOLUTE 0.43 10/3/uL (0.21-1.20); NEUTROPHILS 51.7 %; NEUTROPHILS ABSOLUTE 1.65 10/3/uL (2.02-8.40); PLATELET COUNT 170 10/3/uL (150-400); RBC DISTRIBUTION WIDTH 14.1 % (12.0-16.0); RED CELL COUNT 3.44 10/6/uL (4.0-5.6); WHITE BLOOD CELLS 3.2 10/3/uL (4.5-10.5)
[2017-04-06 07:26] LABS: HEMATOCRIT 28.9 % (36.0-48.0); MANUAL DIFF NO %
[2017-04-06 07:40] LABS: A/G RATIO 1.1 (0.7-1.9); ALBUMIN 3.2 G/DL (3.5-5.0); BUN (BLOOD UREA NITROGEN) 4 MG/DL (6-23); CHLORIDE, SERUM 107 MMOL/L (96-112); CO2 (CARBON DIOXIDE) 32 MMOL/L (24-34); CREATININE 0.55 MG/DL (0.55-1.02); GFR AFRICAN AMERICAN 118 ML/MIN (>=60); GFR NON AFRICAN AMERICAN 102 ML/MIN (>=60); GLOBULIN 2.8 G/DL (2.5-4.1); GLUCOSE, SERUM 101 MG/DL (60-99); POTASSIUM, SERUM 3.8 MMOL/L (3.5-5.3); SGOT(AST) 10 U/L (5-40); SGPT(ALT) 18 U/L (5-65); SODIUM, SERUM 143 MMOL/L (135-148); TOTAL BILIRUBIN 0.7 MG/DL (0-1.2)
[2017-04-06 07:41] LABS: ALKALINE PHOSPHATASE 62 U/L (45-117)
== END 2017-04-06 14:39 | disposition home or self-care (01) | DRG 335 ==
LOC: 5SO 11:14
PROVIDERS: Specialist
PROC: 0DN80ZZ Release Small Intestine, Open Approach (ICD-10-PCS; principal; 2017-04-01)
DX: K56.5 Intestinal adhesions [bands] with obstruction (postinfection) (principal); K55.011 Focal (segmental) acute (reversible) ischemia of small intestine; I10 Essential (primary) hypertension; E78.5 Hyperlipidemia, unspecified; Z90.49 Acquired absence of other specified parts of digestive tract; Z98.890 Other specified postprocedural states
CPT/HCPCS: 74177; 80048; 80053; 81001; 83735; 84100; 85025; 87077; 87086; 87186; 88307; A9270-GY; C9113; J0690; J1885; J2250; J2270; J2405; J2795; J3010; P9045; Q9967